=== PATIENT | male | born 2000 | race Two or more races ===

== ENCOUNTER 2021-01-17 12:03 | Emergency (ER) | payer OTHER ==
[~2021-01-17] VITALS: Ht 177.8 cm; Wt 79.1 kg
--- NOTE | 2021-01-17 14:27 | NUR ---
PT REC'VD DISCHARGE INSTRUCTIONS AND EDUCATION. PT HAD NO FURTHER QUESTIONS.
[2021-01-17 14:28] VITALS: BP 107/68
--- NOTE | 2021-01-17 14:34 | NUR ---
PT AMBULATED TO [place] AREA, STEADY GAIT.
== END 2021-01-17 14:37 | disposition home or self-care (01) ==
LOC: ED 14:30
DX: R20.2 Paresthesia of skin (principal); R53.1 Weakness
CPT/HCPCS: 72050; 99283